=== PATIENT | female | born 2000 | race Caucasian/White ===

== ENCOUNTER 2024-03-27 00:28 | Emergency (ER) | payer MEDICAID ==
[~2024-03-27] VITALS: Ht 167.6 cm; Wt 91.0 kg
[2024-03-27 00:29] VITALS: TEMP 98.4; O2SAT 98
[2024-03-27 01:25] LABS: BASOPHILS % 0.3 % (0.0-2.0); DIFFERENTIAL COMMENT 0; EOSINOPHILS % 3.6 % (0.0-5.0); HEMATOCRIT. 39.2 % (36.0-48.0); LYMPHOCYTES % 28.5 % (20.0-50.0); MEAN CORPUSCULAR HEMOGLOBIN 26.3 pg (28.0-32.0); MEAN CORPUSCULAR HGB CONC 33.3 g/dL (31.0-37.0); MEAN CORPUSCULAR VOLUME 79.1 fL (81.0-99.0); MEAN PLATELET VOLUME 8.4 fl (7.4-10.4); MONOCYTES % 5.3 % (2.0-8.0); NEUTROPHILS % 62.3 % (40.0-76.0); PLATELET 285 x1000/uL (130-400); RED BLOOD CELL COUNT 4.95 mill/uL (4.2-5.4); RED CELL DISTRIBUTION WIDTH 15.5 % (11.6-14.6); WHITE BLOOD COUNT 13.8 x1000/uL (4.5-11.0)
[2024-03-27 01:35] LABS: CHLORIDE 106 mEq/L (98-107); POTASSIUM 3.6 mEq/L (3.5-5.1); SODIUM 139 mEq/L (136-145)
[2024-03-27 01:36] LABS: CLARITY URINE CLEAR (CLEAR); COLOR URINE YELLOW (YELLOW); GLUCOSE URINE NEGATIVE (NEGATIVE); KETONES URINE NEGATIVE (NEGATIVE); LEUKOCYTE ESTERASE URINE TRACE (NEGATIVE); NITRITE URINE NEGATIVE (NEGATIVE); OCCULT BLOOD URINE NEGATIVE (NEGATIVE); PH URINE 5.5 (4.5-8.0); PROTEIN URINE NEGATIVE (NEGATIVE); SPECIFIC GRAVITY URINE 1.016 (1.005-1.030); UROBILINOGEN URINE 0.2 E.U./dL (0.2-1.0)
[2024-03-27 01:36] LABS: CALCIUM 9.2 mg/dL (8.7-10.4); CARBON DIOXIDE 26 mEq/L (21-32)
[2024-03-27] MEDS: ONDANSETRON HCL 4MG/2ML INJ IV STA (01:39)
[2024-03-27] MEDS: MORPHINE SULFATE 4 MG/ML INJ (FOR IV/IM USE) IV STA (01:39)
[2024-03-27] MEDS: SODIUM CHLORIDE 0.9% 1,000 ML IV ONE (01:40)
[2024-03-27 01:41] LABS: CREATININE 0.7 mg/dL (0.6-1.0); GLUCOSE 84 mg/dL (70-105); UREA NITROGEN BLOOD 15 mg/dL (9-23)
[2024-03-27 01:42] LABS: HCG SCREEN NEGATIVE
[2024-03-27 01:43] LABS: ALANINE AMINOTRANSFERASE 44 IU/L (10-49); ALBUMIN 4.5 g/dL (3.2-4.8); ASPARTATE AMINOTRANSFERASE 80 IU/L (<34); BILIRUBIN DIRECT 0.2 mg/dL (<=3.0)
[2024-03-27 01:44] LABS: BILIRUBIN TOTAL 0.5 mg/dL (0.1-1.0); PROTEIN TOTAL 7.1 g/dL (6.0-8.3)
[2024-03-27 01:52] LABS: BACTERIA URINE TRACE; RBC URINE NONE SEEN /hpf (0-2); SQUAMOUS EPITHELIAL CELL URINE FEW /lpf (RARE/1+)
[2024-03-27] MEDS: PIPERACILLIN/TAZO 3.375G/50ML 50 ML IV NR (02:29)
[2024-03-27 04:54] VITALS: BP 96/54; PULSE 74; RESP 14; O2SAT 98
== END 2024-03-27 05:08 | disposition left against medical advice (07) ==
LOC: ER 00:28
DX: K80.62 Calculus of gallbladder and bile duct with acute cholecystitis without obstruction (principal); J45.909 Unspecified asthma, uncomplicated; F19.90 Other psychoactive substance use, unspecified, uncomplicated
CPT/HCPCS: 80076; 80048; 81003; 84703; 83605; 83690; 85025; 36415; 76705; 96361; 96365; 96375; 99285; J2405; J2543; J2270; J7030; Z7610